=== PATIENT | male | born 1940 | race African-American/Black ===

== ENCOUNTER 2020-08-05 08:10 | Emergency (ER) | payer OTHER ==
--- OUTSIDE RECORDS SUMMARY | 2020-08-05 08:14 | XMS REPORT | Continuity of Care Document ---
:[address] [facility] t Address [address] [place] [address] Dr. Peterson. [address] [place] [id number] Care Team Providers Name Role Phone Unavailable Unavailable Unavailable Problems This patient has no known problems. Allergies, Adverse Reactions, Alerts This patient has no known allergies or adverse reactions. Medications This patient has no known medications. Procedures This patient has no known procedures. Results This patient has no known results.
--- NOTE | 2020-08-05 09:52 | RAD REPORT ---
EXAM DESCRIPTION: RAD - Elbow Left 3 View - 08/05/2020 9:45 am CLINICAL HISTORY: PAIN COMPARISON: No comparisons FINDINGS: There is a large amount of soft tissue swelling in the olecranon region which may indicate bursitis. Large olecranon osteophyte is present. Lucency within the osteophyte may indicate fracture of the osteophyte.
--- NOTE | 2020-08-05 10:29 | EDPHYS ---
Physician Documentation [facility] Name: Zhou Gutiérrez Age: 79 yrs Sex: Male : 1940 Arrival Date: 08/05/2020 Time: 08:13 Bed 19 Private MD: ED Physician Ashley Lopez HPI: 08/05 09:35 This 79 yrs old Black Male presents to ER via Ambulatory with complaints of Arm Pain, ma2 Shoulder Pain. 09:35 The complaints affect the left antecubital area. Onset: The symptoms/episode ma2 began/occurred gradually, 2 day(s) ago. Associated signs and symptoms: Pertinent negatives: fever, numbness, swelling. Severity of symptoms: At their worst the symptoms were mild. The patient has experienced similar episodes in the past. here with pain on left proximal forearm. started after he has been working lifting heavy objects. . Historical: - Allergies: 08:13 No Known Allergies; aa5 - PMHx: 08:13 Hypertension; aa5 - Immunization history:: Adult Immunizations up to date. - Social history:: Smoking status: Patient denies any tobacco usage or history of. - Family history:: not pertinent. ROS: 09:35 Constitutional: Negative for fever, chills, and weight loss, Cardiovascular: Negative ma2 for chest pain, palpitations, and edema, Respiratory: Negative for shortness of breath, cough, wheezing, and pleuritic chest pain, Abdomen/GI: Negative for abdominal pain, nausea, diarrhea, and constipation, Neuro: Negative for headache, weakness, numbness, tingling, and seizure, Psych: Negative for depression, anxiety, suicide ideation, homicidal ideation, and hallucinations. 09:35 All other systems are negative. Exam: 09:35 Constitutional: This is a well developed, well nourished patient who is awake, alert, ma2 and in no acute distress. Head/Face: Normocephalic, atraumatic. Eyes: Pupils equal round and reactive to light, extra-ocular motions intact. Lids and lashes normal. Conjunctiva and sclera are non-icteric and not injected. Cornea within normal limits. Periorbital areas with no swelling, redness, or edema. ENT: Nares patent. No nasal discharge, no septal abnormalities noted. Tympanic membranes are normal and external auditory canals are clear. Oropharynx with no redness, swelling, or masses, exudates, or evidence of obstruction, uvula midline. Mucous membranes moist. Neck: Trachea midline, no thyromegaly or masses palpated, and no cervical lymphadenopathy. Supple, full range of motion without nuchal rigidity, or vertebral point tenderness. No Meningismus. Chest/axilla: Normal chest wall appearance and motion. Nontender with no deformity. No lesions are appreciated. Cardiovascular: Regular rate and rhythm with a normal S1 and S2. No gallops, murmurs, or rubs. Normal PMI, no JVD. No pulse deficits. Respiratory: Lungs have equal breath sounds bilaterally, clear to auscultation and percussion. No rales, rhonchi or wheezes noted. No increased work of breathing, no retractions or nasal flaring. Abdomen/GI: Soft, non-tender, with normal bowel sounds. No distension or tympany. No guarding or rebound. No evidence of tenderness throughout. Skin: Warm, dry with normal turgor. Normal color with no rashes, no lesions, and no evidence of cellulitis. MS/ Extremity: left elbow shows pain and ttp over left brachioradialis muscle conssitent with tennis elbow sprain, elbow joint is non tender no effusion no redniss and has full rom on left elbow. he does have olecranon hard swelling he sttes it is been there for years and unchanged. Pulses equal, no cyanosis. Neurovascular intact. Full, normal range of motion. Neuro: Awake and alert, GCS 15, oriented to person, place, time, and situation. Cranial nerves II-XII grossly intact. Motor strength 5/5 in all extremities. Sensory grossly intact. Cerebellar exam normal. Normal gait. Vital Signs: 08:13 BP 173 / 79; Pulse 78; Resp 16 S; Temp 97.9(O); Pulse Ox 99% on R/A; Weight 83.01 kg aa5 (R); Height 5 ft. 9 in. (175.26 cm) (R); 10:14 BP 138 / 80; Pulse 65; Resp 16 S; Pulse Ox 100% on R/A; jd3 08:13 Body Mass Index 27.02 (83.01 kg, 175.26 cm) aa5 MDM: 08:24 Patient medically screened. ma2 09:35 Differential diagnosis: closed fracture, contusion, abrasion, tendonitis. ma2 10:28 Data reviewed: vital signs, nurses notes. Counseling: I had a detailed discussion with princess the patient and/or guardian regarding: the historical points, exam findings, and any diagnostic results supporting the discharge/admit diagnosis, the presence of at least one elevated blood pressure reading (>120/80) during this emergency department visit, the need for outpatient follow up. Response to treatment: the patient's symptoms have markedly improved after treatment. 08/05 08:58 Order name: XRAY Elbow LEFT 3 view; Complete Time: 10:06 ma2 08/05 08:58 Order name: Sling; Complete Time: 10:12 ma2 Administered Medications: No medications were administered Disposition: 08/05/20 10:29 Discharged to Home. Impression: Pain in left elbow. - Condition is Stable. - Discharge Instructions: Musculoskeletal Pain. - Prescriptions for Diclofenac Sodium 75 mg Oral Tablet Sustained Release - take 1 tablet by ORAL route 2 times per day; 30 tablet. Cyclobenzaprine 10 mg Oral Tablet - take 1 tablet by ORAL route every 8 hours As needed; 30 tablet. - Medication Reconciliation Form, Thank You Letter, Antibiotic Education, Prescription Opioid Use form. - Follow up: Private Physician; When: 24 Hours; Reason: If symptoms return. - Notes: see your primary doctor for mri of left elbow if pain last more than 1 week Signatures: Dispatcher [employer] EDMS Radha Lao RN RN aa5 Eddie Carty RN RN aristidesd3 Ashley Lopez MD MD pr2 Corrections: (The following items were deleted from the chart) 11:13 10:29 08/05/2020 10:29 Discharged to Home. Impression: Pain in left elbow. Condition is jd3 Stable. Discharge Instructions: Musculoskeletal Pain. Prescriptions for Diclofenac Sodium 75 mg Oral Tablet Sustained Release - take 1 tablet by ORAL route 2 times per day; 30 tablet, Cyclobenzaprine 10 mg Oral Tablet - take 1 tablet by ORAL route every 8 hours As needed; 30 tablet. and Forms are Medication Reconciliation Form, Thank You Letter, Antibiotic Education, Prescription Opioid Use. Follow up: Private Physician; When: 24 Hours; Reason: If symptoms return. pr2
--- NOTE | 2020-08-05 10:29 | ER ---
Nurse's Notes [facility] Name: Zhou Gutiérrez Age: 79 yrs Sex: Male : 1940 Arrival Date: 08/05/2020 Time: 08:13 Bed 19 [facility] MD: Diagnosis: Pain in left elbow Presentation: 08/05 08:13 Chief complaint: Patient states: "I was working on a pipe and doing a lot of lifting on aa5 Thursday and I think I hurt my left arm". pt c/o left forearm pain radiating up to left shoulder. 08:13 Coronavirus screen: At this time, the client does not indicate any symptoms associated aa5 with coronavirus-19. Ebola Screen: Patient negative for fever greater than or equal to 101.5 degrees Fahrenheit, and additional compatible Ebola Virus Disease symptoms. Initial Sepsis Screen: Does the patient meet any 2 criteria? No. Patient's initial sepsis screen is negative. Does the patient have a suspected source of infection? No. Patient's initial sepsis screen is negative. Risk Assessment: Do you want to hurt yourself or someone else? Patient reports no desire to harm self or others. Onset of symptoms was August 2020. 08:13 Acuity: NBA 4 aa5 08:13 Method Of Arrival: Ambulatory aa5 Historical: - Allergies: 08:13 No Known Allergies; aa5 - PMHx: 08:13 Hypertension; aa5 - Immunization history:: Adult Immunizations up to date. - Social history:: Smoking status: Patient denies any tobacco usage or history of. - Family history:: not pertinent. Screenin:14 Abuse screen: Denies threats or abuse. Nutritional screening: No deficits noted. jd3 Tuberculosis screening: No symptoms or risk factors identified. Fall Risk Ambulatory Aid- None/Bed Rest/Nurse Assist (0 pts). Gait- Normal/Bed Rest/Wheelchair (0 pts) Mental Status- Oriented to own ability (0 pts). Total Joseph Fall Scale indicates. Assessment: 10:13 General: Appears in no apparent distress. uncomfortable, Behavior is calm, cooperative, jd3 appropriate for age. Pain: Complains of pain in left elbow Quality of pain is described as aching, tender. Neuro: Level of Consciousness is awake, alert, obeys commands, Oriented to person, place, time, situation. Cardiovascular: Denies chest pain, Capillary refill < 3 seconds Patient's skin is warm and dry. Respiratory: Airway is patent Respiratory effort is even, unlabored, Respiratory pattern is regular, symmetrical, Denies cough, shortness of breath. GI: No signs and/or symptoms were reported involving the gastrointestinal system. : No signs and/or symptoms were reported regarding the genitourinary system. EENT: No signs and/or symptoms were reported regarding the EENT system. Derm: Skin is intact, Skin is dry, Skin is normal, Skin temperature is warm. Musculoskeletal: Circulation, motion, and sensation intact. Range of motion: intact in all extremities. 11:13 Reassessment: Patient appears in no apparent distress at this time. Patient and/or jd3 family updated on plan of care and expected duration. Pain level reassessed. Patient is alert, oriented x 3, equal unlabored respirations, skin warm/dry/pink. Vital Signs: 08:13 BP 173 / 79; Pulse 78; Resp 16 S; Temp 97.9(O); Pulse Ox 99% on R/A; Weight 83.01 kg aa5 (R); Height 5 ft. 9 in. (175.26 cm) (R); 10:14 BP 138 / 80; Pulse 65; Resp 16 S; Pulse Ox 100% on R/A; jd3 08:13 Body Mass Index 27.02 (83.01 kg, 175.26 cm) aa5 ED Course: 08:13 Patient arrived in ED. as 08:13 Arm band placed on. aa5 08:24 Ashley Lopez MD is Attending Physician. ma2 08:28 Eddie Carty, ANNELIESE is Primary Nurse. jd3 08:34 Triage completed. aa5 09:45 XRAY Elbow LEFT 3 view In Process Unspecified. EDMS 10:14 Patient has correct armband on for positive identification. Bed in low position. Call jd3 light in reach. Side rails up X 1. Pulse ox on. NIBP on. 11:13 No provider procedures requiring assistance completed. Patient did not have IV access jd3 during this emergency room visit. Administered Medications: No medications were administered Outcome: 10:29 Discharge ordered by . ma2 11:13 Discharged to home ambulatory, with family. jd3 11:13 Condition: stable 11:13 Discharge instructions given to patient, Instructed on discharge instructions, follow up and referral plans. medication usage, Demonstrated understanding of instructions, follow-up care, medications, Prescriptions given X 2. 11:13 Patient left the ED. jd3 Signatures: Dispatcher [employer] Katelynn Gerardo Audri, RN RN aa5 Eddie Carty RN RN jd3 Ashley Lopez MD MD ma2
[2020-08-05 12:05] VITALS: BP 173/79; TEMP 97.9; O2SAT 99
== END 2020-08-05 11:13 | disposition home or self-care (01) ==
LOC: ER 08:10
DX: M25.522 Pain in left elbow (principal); I10 Essential (primary) hypertension
CPT/HCPCS: 99283